=== PATIENT | female | born 1960 | race Caucasian/White ===

== ENCOUNTER 2016-09-23 11:26 | Emergency (ER) | payer BC ==
[~2016-09-23] VITALS: Ht 152.4 cm; Wt 63.0 kg
[2016-09-23 12:46] VITALS: BP 110/74
== END 2016-09-23 12:40 | disposition home or self-care (01) ==
LOC: ED 11:27
DX: R42 Dizziness and giddiness (principal)
CPT/HCPCS: 99281; 99283

== ENCOUNTER 2016-10-04 13:00 | Outpatient (RCR) | payer BC | END 2016-10-12 12:00 | disposition home or self-care (01) | LOC: PT 13:00 | PROVIDERS: ATTEND Orthopaedic Surgery | DX: M25.362 Other instability, left knee (principal); R29.898 Other symptoms and signs involving the musculoskeletal system; Z98.890 Other specified postprocedural states ==